=== PATIENT | male | born 1955 | race African-American/Black ===

== ENCOUNTER 2024-08-17 08:05 | Day surgery (SDC) | payer OTHER ==
[~2024-08-17] VITALS: Ht 190.5 cm; Wt 89.8 kg
[~2024-08-17 08:05] MED LIST: ASPI1TAB20 PO; ATOR40TA52 PO; EMPA1TAB3 PO; PANC1CAP30 PO
[2024-08-17] MEDS ORDERED: HEPARIN IN NS 1000Units/500mL 1,500 ML ONE (09:37)
[2024-08-17] MEDS ORDERED: IODIXANOL 320MG/ML 100ML BTL IV ONE (09:50)
[2024-08-17] MEDS ORDERED: ANGIOMAX 250 MG VIAL IV ONE (09:51)
[2024-08-17] MEDS ORDERED: fentaNYL CITRATE 100 MCG/2 ML VL ONE (09:52)
[2024-08-17] MEDS ORDERED: SODIUM CHL 0.9% 0 ML ONE (09:52)
[2024-08-17] MEDS ORDERED: MIDAZOLAM HCL 2MG/2ML 2ml VIAL (1mg/ml) ONE (09:52)
[2024-08-17] MEDS ORDERED: LIDOCAINE 2%HCL (LOCAL ANESTH.) INJ 20ML MDV ONE (09:52)
--- NOTE | 2024-08-17 12:23 | DVHOP ---
DATE OF SURGERY: 08/17/2024 PROCEDURES PERFORMED: Ultrasound-guided vascular access, conscious sedation administration and supervision less than 15 minutes as well as 15-30 minutes fluoroscopy use interpretation, first order, second order catheter placement, abdominal angiogram, lower extremity runoff, unilateral lower extremity angiogram and hemostasis, closure device. PREOPERATIVE DIAGNOSES: Severe peripheral arterial disease with bilateral chronic total occlusion of the superficial femoral artery, history of abdominal aortic aneurysm repair with common iliac stenting. DESCRIPTION OF PROCEDURE: The patient signed informed consent, understanding risks and benefits, and alternatives of the procedure, he wished to proceed. He was brought to the label tacker [place] He was prepped in sterile fashion, 8 mL of 2% lidocaine was given to his right groin with an antegrade flow wall puncture using a Cook needle and ultrasound-guided access, I cannulated the right common femoral artery and placed a 6-[place] sheath. Ipsilateral angiogram was performed showing appropriate arteriotomy site. Then, I did a unilateral lower extremity angiogram on the right lower extremity, the common femoral artery is patent with heavy calcific eccentric lesion in the distal common femoral into the very ostial SFA. Ostial SFA is patent. The proximal SFA is completely flush occlusion with very distal late reconstitution into the proximal popliteal or distal SFA in the Mick's canal, there is a large profunda coming off with significant collaterals. The entire proximal, mid and distal SFA is completely occluded. The right popliteal artery is patent. The right tibioperoneal trunk is patent. Right posterior tibial artery is patent, right anterior tibial artery is patent. The right common iliac artery is patent. With a rim catheter, I was unable to get into the left system, it appears the stents have jailed each other off into the distal aorta. The distal aorta appears to be patent all the right common iliac stenting. CONCLUSIONS: * Right lower extremity entire flushed chronic total occlusion of the right superficial femoral artery. * Left superficial femoral artery chronic total occlusion based off of ultrasound. PLAN: The patient should be evaluated for bilateral bypass surgery fem-pop. Pacheco Jaime MD CM/CIERA TID: [id number] RECEIPT: [id number]
--- NOTE | 2024-08-20 08:16 | ECG ---
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
== END 2024-08-17 12:35 | disposition home or self-care (01) ==
LOC: CATH 08:05
PROVIDERS: ATTEND Internal Medicine
DX: I70.203 Unspecified atherosclerosis of native arteries of extremities, bilateral legs (principal); I70.92 Chronic total occlusion of artery of the extremities; F12.90 Cannabis use, unspecified, uncomplicated
CPT/HCPCS: 36245; 75710; 93005; C1760; C1769; C1894; J1644; J2250; J3010; J7030; Q9967; 99152